=== PATIENT | female | born 2005 | race African-American/Black ===

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

== ENCOUNTER 2023-11-21 02:21 | Emergency (ER) | payer MEDICAID, OTHER ==
[~2023-11-21] VITALS: Ht 162.6 cm; Wt 60.0 kg
[~2023-11-21 02:21] MED LIST changes: +CEPH500C2 MT; +PNV1TABL76 MT
[2023-11-21 02:25] VITALS: BP 107/45; PULSE 108; RESP 18; TEMP 99; O2SAT 100
[2023-11-21] MEDS ORDERED: ACETAMINOPHEN 500MG TABLET PO ONE (02:30)
== END 2023-11-21 03:59 | disposition left against medical advice (07) ==
LOC: ER 02:29
DX: O26.891 Other specified pregnancy related conditions, first trimester (principal); Z3A.10 10 weeks gestation of pregnancy
CPT/HCPCS: 99283